=== PATIENT | male | born 1985 | race Caucasian/White ===

== ENCOUNTER 2017-05-29 10:29 | Emergency (ER) | payer OTHER ==
[2017-05-29 10:49] VITALS: BP 129/84; PULSE 68; TEMP 98.6; BMI 33.0
[2017-05-29] MEDS ORDERED: KETOROLAC TROMETHAMINE 60 MG/2 ML VIAL IM ONE (12:01)
[2017-05-29] MEDS ORDERED: CYCLOBENZAPRINE HCL 10 MG TABLET (FP) PO ONE (12:01)
[2017-05-29] MEDS ORDERED: KETOROLAC TROMETHAMINE 60 MG/2 ML VIAL ONE (12:05)
[2017-05-29] MEDS ORDERED: CYCLOBENZAPRINE HCL 10 MG TABLET (FP) ONE (12:05)
--- NOTE | 2017-05-29 12:09 | PDOC ---
History of Present Illness - General Chief Complaint: Back Pain Stated Complaint: BACK PAIN Time Seen by Provider: 05/29/17 11:42 - History of Present Illness Initial Comments: 05/29/17 12:02 CHIEF COMPLAINT: low back pain HISTORY OF PRESENT ILLNESS: 32 yo M with hx of chronic back pain (approximately 1-2 year) presents to [facility] with worsening back pain today. 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 He reports waking up this morning and having severe 9/10 pain, worse with movement. Patient denies any loss of sensation to lower extremities and any loss of bowel or bladder function. PAST MEDICAL HISTORY: Denies past medical history FAMILY HISTORY: Denies SOCIAL HISTORY: Denies tobacco, alcohol, illicit drug use. SURGICAL HISTORY: Denies ALLERGIES: No known drug allergies REVIEW OF SYSTEMS General/Constitutional: Denies fever or chills. Denies weakness, weight change. HEENT: Denies change in vision. Denies ear pain or discharge. Denies sore throat. Cardiovascular: Denies chest pain or shortness of breath. Respiratory: Denies cough, wheezing. Gastrointestinal: Denies loss of bowel function. Denies nausea, vomiting, diarrhea or constipation. Denies rectal bleeding. Genitourinary: Denies loss of bladder function. Denies dysuria, frequency, or change in urination. Musculoskeletal: Low back pain. Denies joint or muscle swelling or pain. Denies neck pain. Skin and breasts: Denies rash or easy bruising. PHYSICAL EXAM General Appearance: Well-appearing, appropriately dressed. No apparent distress. HEENT: EOMI, PERRLA. No conjunctival pallor. No photophobia, scleral icterus. Respiratory/Chest: Lungs CTAB. Cardiovascular: RRR. S1, S2. Gastrointestinal/Abdominal: Normal bowel sounds. Abdomen soft, non-distended. No tenderness or rebound tenderness. No organomegaly, pulsatile mass, guarding , hernia, hepatomegaly, splenomegaly. Musculoskeletal/Extremities: Palpable muscle spasm to R paravertebral muscles at level of L4-L5. Normal inspection. FROM of all extremities, normal capillary refill. Pelvis Stable. No CVA tenderness. No tenderness to extremities, pedal edema, swelling, erythema or deformity. Integumentary: Appropriate color, dry, warm. 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 Fully oriented, alert. Appropriate mood/affect. Motor strength 5/5. No appreciable EOM palsy, facial droop or sensory deficit. Past History - Past Medical History Allergies/Adverse Reactions: Allergies Allergy/AdvReac Type Severity Reaction Status Date / Time No Known Allergies Allergy Verified 05/29/17 10:46 Home Medications: Ambulatory Orders Cyclobenzaprine HCl 10 mg PO HS PRN #7 tablet 05/29/17 Diclofenac Sodium 50 mg PO BID #14 tablet. 05/29/17 COPD: No Other medical history: DENIES. - Immunization History Immunization Up to Date: Yes - Suicide/Smoking/Psychosocial Hx Smoking Status: Yes Smoking History: Current every day smoker Have you smoked in the past 12 months: Yes Number of Cigarettes Smoked Daily: 8 Information on smoking cessation initiated: No Hx Alcohol Use: No Drug/Substance Use Hx: Yes Substance Use Type: Marijuana *Physical Exam - Vital Signs Last Vital Signs Temp Pulse Resp BP Pulse Ox 98.6 F 68 19 129/84 99 05/29/17 10:46 05/29/17 10:46 05/29/17 10:46 05/29/17 10:46 05/29/17 10:46 Medical Decision Making - Medical Decision Making 05/29/17 12:09 32 yo M with hx of chronic back pain (approximately 1-2 year) presents to [facility] with worsening back pain today -Toradol IM WIll treat with NSAIDS, flexeril. Advised patient to take medications as prescribed and follow up with ortho this week. Advised patient of signs and symptoms for return to ED. Patient verbalized understanding and agrees to plan. *DC/Admit/Observation/Transfer Diagnosis at time of Disposition: Low back pain - Discharge Dispostion Disposition: HOME Condition at time of disposition: Stable Admit: No - Prescriptions Prescriptions: Cyclobenzaprine HCl 10 mg PO HS PRN #7 tablet PRN Reason: Muscle Spasms Diclofenac Sodium 50 mg PO BID #14 tablet. - Referrals Referrals: Marvin Bustos MD [Staff Physician] - - Patient Instructions Printed Discharge Instructions: DI for Low Back Pain, Managing Chronic Low Back Pain, Exercise May Reduce Risk of Low Back Pain Additional Instructions: Please take medications as prescribed. As discussed, do NOT drink, drive, or operate machinery while taking cyclobenzaprine. If you develop ANY loss of sensation to your legs, any loss of bowel or bladder function, fever, chills, neck stiffness, or any new or worsening symptoms, please return to the ER. - Post Discharge Activity
== END 2017-05-29 12:20 | disposition home or self-care (01) ==
LOC: JERFT 10:29
PROC: 3E0233Z Introduction of Anti-inflammatory into Muscle, Percutaneous Approach (ICD-10-PCS; principal; 2017-05-29)
DX: M54.5 Low back pain (principal)
CPT/HCPCS: 99281-25

== ENCOUNTER 2018-09-19 12:37 | Emergency (ER) | payer BC, OTHER ==
[2018-09-19 12:49] VITALS: BP 114/58; PULSE 78; TEMP 98; BMI 31.5
[2018-09-19] MEDS ORDERED: KETOROLAC TROMETHAMINE 60 MG/2 ML VIAL IM ONE (13:00)
--- NOTE | 2018-09-19 13:01 | PDOC ---
History of Present Illness - General Chief Complaint: Back Pain Stated Complaint: LWR BACK PAIN Time Seen by Provider: 09/19/18 12:58 - History of Present Illness Initial Comments: 09/19/18 13:00 33-year-old male without comorbidities presents for evaluation of lower back pain without radicular symptoms. He states he was lifting something up heavy at work today when he felt back pain. Past History - Past Medical History Allergies/Adverse Reactions: Allergies Allergy/AdvReac Type Severity Reaction Status Date / Time No Known Allergies Allergy Verified 09/19/18 12:45 Home Medications: Ambulatory Orders Cyclobenzaprine HCl 10 mg PO HS PRN #7 tablet 05/29/17 Diclofenac Sodium 50 mg PO BID #14 tablet. 05/29/17 Cyclobenzaprine HCl [Flexeril 10 mg] 10 mg PO HS PRN #10 tablet 09/19/18 Ibuprofen [Motrin -] 600 mg PO TID #30 tablet 09/19/18 COPD: No Other medical history: DENIES - Immunization History Immunization Up to Date: Yes - Suicide/Smoking/Psychosocial Hx Smoking Status: Yes Smoking History: Current every day smoker Have you smoked in the past 12 months: Yes Number of Cigarettes Smoked Daily: 8 Information on smoking cessation initiated: No Hx Alcohol Use: No Drug/Substance Use Hx: No Substance Use Type: Marijuana Review of Systems - Review of Systems : No: Incontinence Musculoskeletal: Yes: Back Pain *Physical Exam - Vital Signs Last Vital Signs Temp Pulse Resp BP Pulse Ox 98.0 F 78 18 114/58 L 100 09/19/18 12:46 09/19/18 12:46 09/19/18 12:46 09/19/18 12:46 09/19/18 12:46 - Physical Exam Comments: 09/19/18 13:14 Lumbar spine skin color and temperature are normal range of motion is limited. There is no midline tenderness moderate bilateral paralumbar musculature tenderness. Minimal spasm. 5 out of 5 strength bilateral lower extremities without gross sensorimotor deficits. Neurovascularly intact. Medical Decision Making - Medical Decision Making 09/19/18 13:14 Toradol and Tylenol in the emergency room, prescription given for Motrin and Flexeril follow-up with spine surgery. No gross deficits on examination. *DC/Admit/Observation/Transfer Diagnosis at time of Disposition: Low back pain - Discharge Dispostion Disposition: HOME Condition at time of disposition: Stable Decision to Admit order: No - Referrals Referrals: Mick Polo MD [Staff Physician] - - Patient Instructions Printed Discharge Instructions: Low Back Pain, DI for Low Back Pain Additional Instructions: Return to the emergency room for worsening symptoms. Please take the muscle relaxer one tablet before bedtime and will make you sleepy. The anti- inflammatories one tablet 3 times a day with food. Discontinue that medication if it bothers her stomach. Do not take any other medications besides Tylenol while on the medication I prescribed for you. Follow-up with orthopedic spine surgery in 1-2 days for further evaluation and treatment options. And return to the emergency room for worsening symptoms. - Post Discharge Activity
[2018-09-19] MEDS ORDERED: KETOROLAC TROMETHAMINE 60 MG/2 ML VIAL ONE (13:02)
[2018-09-19] MEDS ORDERED: ACETAMINOPHEN 500 MG TABLET (FP) PO ONE (13:14)
[2018-09-19] MEDS ORDERED: ACETAMINOPHEN 500 MG TABLET (FP) ONE (13:21)
== END 2018-09-19 13:42 | disposition home or self-care (01) ==
LOC: JERFT 12:37
PROC: 3E0233Z Introduction of Anti-inflammatory into Muscle, Percutaneous Approach (ICD-10-PCS; principal; 2018-09-19)
DX: M54.5 Low back pain (principal); F17.210 Nicotine dependence, cigarettes, uncomplicated; X58.XXXA Exposure to other specified factors, initial encounter; Y93.89 Activity, other specified; Y92.89 Other specified places as the place of occurrence of the external cause; Y99.0 Civilian activity done for income or pay
CPT/HCPCS: 99281-25

== ENCOUNTER 2023-05-22 10:44 | Emergency (ER) | payer OTHER ==
[2023-05-22] MEDS ORDERED: KETOROLAC TROMETHAMINE 60 MG/2 ML VIAL IM ONE (11:05)
[2023-05-22 11:08] VITALS: BP 120/72; PULSE 81; RESP 18; TEMP 97.9; BMI 31.5
[2023-05-22] MEDS ORDERED: KETOROLAC TROMETHAMINE 60 MG/2 ML VIAL ONE (11:19)
== END 2023-05-22 12:33 | disposition home or self-care (01) ==
LOC: JERFT 10:44
PROC: 3E0233Z Introduction of Anti-inflammatory into Muscle, Percutaneous Approach (ICD-10-PCS; principal; 2023-05-22)
DX: M54.50 Low back pain, unspecified (principal); M62.830 Muscle spasm of back; M51.36 Other intervertebral disc degeneration, lumbar region; X50.0XXA Overexertion from strenuous movement or load, initial encounter
CPT/HCPCS: 72100-TC-FY; 99284-25

== ENCOUNTER 2023-05-29 13:54 | Emergency (ER) | payer OTHER ==
[2023-05-29 14:01] VITALS: BP 123/74; PULSE 78; RESP 20; TEMP 98.2; BMI 31.5
[2023-05-29] MEDS ORDERED: ACETAMINOPHEN 500 MG TABLET (FP) PO ONE (15:10)
[2023-05-29] MEDS ORDERED: KETOROLAC TROMETHAMINE 30 MG/1 ML VIAL IM ONE (15:10)
[2023-05-29] MEDS ORDERED: METHOCARBAMOL 750 MG TAB PO ONE (15:10)
[2023-05-29] MEDS ORDERED: LIDOCAINE 5% TOPICAL PATCH TP ONE (15:10)
[2023-05-29] MEDS ORDERED: ACETAMINOPHEN 325 MG TABLET (FP) ONE (15:16)
[2023-05-29] MEDS ORDERED: METHOCARBAMOL 500 MG TABLET ONE (15:16)
[2023-05-29] MEDS ORDERED: LIDOCAINE 4% PATCH TP ONE (15:17)
[2023-05-29] MEDS ORDERED: KETOROLAC TROMETHAMINE 30 MG/1 ML VIAL ONE (15:17)
[2023-05-29] MEDS ORDERED: LIDOCAINE PATCH REMOVAL MC ONE (22:00)
== END 2023-05-29 17:00 | disposition home or self-care (01) ==
LOC: JERFT 13:54
PROC: 3E0233Z Introduction of Anti-inflammatory into Muscle, Percutaneous Approach (ICD-10-PCS; principal; 2023-05-29)
DX: M54.50 Low back pain, unspecified (principal)
CPT/HCPCS: 96372; 99284-25

== ENCOUNTER 2024-08-30 13:15 | Emergency (ER) | payer OTHER ==
[2024-08-30 13:30] VITALS: BP 99/67; PULSE 60; RESP 18; TEMP 98.4; BMI 31.5
[2024-08-30] MEDS ORDERED: ACETAMINOPHEN 500 MG TABLET (FP) ONE (14:17)
[2024-08-30] MEDS ORDERED: KETOROLAC TROMETHAMINE 30 MG/1 ML VIAL ONE (14:17)
[2024-08-30] MEDS ORDERED: LIDOCAINE 5% TOPICAL PATCH ONE (14:17)
[2024-08-30] MEDS ORDERED: CycloBENZAprine HCL 10 MG TABLET (FP) ONE (14:17)
[2024-08-30] MEDS: CycloBENZAprine HCL 10 MG TABLET (FP) PO ONE (14:28)
[2024-08-30] MEDS: KETOROLAC TROMETHAMINE 30 MG/1 ML VIAL IM ONE (14:29)
[2024-08-30] MEDS: ACETAMINOPHEN 500 MG TABLET (FP) PO ONE (14:30)
[2024-08-30] MEDS: LIDOCAINE 5% TOPICAL PATCH TP ONE (14:36)
[2024-08-30] MEDS ORDERED: LIDOCAINE PATCH REMOVAL MC SCH (22:00)
== END 2024-08-30 15:04 | disposition home or self-care (01) ==
LOC: JERFT 13:15
PROC: 3E0233Z Introduction of Anti-inflammatory into Muscle, Percutaneous Approach (ICD-10-PCS; principal; 2024-08-30)
DX: M54.50 Low back pain, unspecified (principal); G89.29 Other chronic pain
CPT/HCPCS: 99284-25